=== PATIENT | male | born 1960 | race Caucasian/White ===

== ENCOUNTER 2020-03-02 06:29 | Day surgery (SDC) | payer OTHER ==
[~2020-03-02] VITALS: Ht 188 cm; Wt 135.5 kg
[~2020-03-02 06:29] MED LIST: HYDROXYZINE HCL50 MG PO; REMERON30 MG PO
[2020-03-02 07:10] VITALS: BP 135/70; Ht 188 cm; Wt 135.5 kg
[2020-03-02] MEDS ORDERED: OXYCODONE HCL5 M1 PO (07:15)
[2020-03-02] MEDS ORDERED: VISTARIL50 MG PO (07:16)
--- NOTE | 2020-03-02 10:26 | NUR ---
1025 VOIDS 300CC IN URINAL. SOFIYA AT DR. TEJEDA OFFICE TO ARRANGE WITH AMRITA RINCON FOR THIS PT.
--- NOTE | 2020-03-03 13:36 | OP ---
PATIENT NAME: JESUS DRAKE MEDICAL RECORD: [id number] :64 LOCATION:[facility] ADMISSION DATE: SURGEON: FESTUS MELGAR DO DATE OF OPERATION: 03/02/2020 PROCEDURE PERFORMED: Right Achilles tendon debridement and repair. PREOPERATIVE DIAGNOSIS: Right Achilles tendon partial tear and tendinosis midsubstance. POSTOPERATIVE DIAGNOSIS: Right Achilles tendon partial tear and tendinosis midsubstance. INDICATIONS: Mr. Drake is a 59-year-old male who has had this bump on the back of his right Achilles for over a year. He says he remembers hurting it, but does not remember how and had been becoming quite painful for him. He lost plantar flexion strength. I saw him in my office with an MRI report, showed tendinosis in the midsubstance which was likely due to a partial tear from the past, but it had gotten bigger and bigger and bothering him. There was not good tendon seen. I told him I could debride it and hopefully get that knot to go away, but he would be at risk for rerupture, continued pain, infection, bleeding, wound dehiscence, blood clots, and even . He signed the consent. SURGEON: Festus Melgar DO DESCRIPTION OF PROCEDURE: The patient received block per anesthesia in the preoperative area. He was taken to operative suite, in a supine position given general anesthetic and intubated. He was given 2 grams of Ancef. He was then put over in the prone position and the right lower extremity was prepped and draped in sterile fashion. A timeout was performed. Everyone was in agreeance with correct side, side, patient, and procedure. I then elevated the right lower extremity. A tourniquet was inflated to 350 mmHg and was up for 29 minutes. I then made an incision over the large bump he had on the back of his Achilles. Careful dissection made down to the tendon itself. The tendon on the posterior surface was not disrupted whatsoever, but I divided it and there was a large piece of tendon, probably 3 x 2 cm of tendinosis. It was a very poor tendon quality, I excised this. Once I excised, I used Regeneten, sutured it in from the anterior side to the posterior side with 4-0 Monocryl and then closed the tendon over with a running stitch of 4-0 Ethibond. Once I was ran through the tendon and secured very nicely, the Stravix graft was then placed over the tendon as an act of paratenon as this side is very bad for healing and this was sutured into the soft tissue with 4-0 Monocryl in simple fashion. The tourniquet was then let down and then Lizbet Pal, certified surgical appliance fitter, closed the wound with 3-0 Vicryl in inverted interrupted fashion and 2-0 nylon in horizontal mattress fashion. I then dressed with Adaptic, 4 x 4s, ABD, cast padding and a 4 x 30 splint was placed posteriorly and secured with Lowell wrap. He was then awakened and taken to recovery in stable condition. BLOOD LOSS: Minimal. COMPLICATIONS: None. TRANSINT:[id number] Voice Confirmation ID: [id number] DOCUMENT ID: [id number] OPERATIVE REPORT [id number] JESUS DRAKE,FESTUS Garcia DO at 1336 CC: [id number] DICTATION DATE: 03/02/20944 INTEGRATION SOLUTION ARCHITECT: 03/02/202111 [facility] 03/02/20 [facility] [address] [place] [address]
== END 2020-03-02 10:45 | disposition home or self-care (01) ==
LOC: D.OPS 06:29
PROVIDERS: ATTEND Orthopaedic Surgery
DX: S86.011A Strain of right Achilles tendon, initial encounter (principal); X58.XXXA Exposure to other specified factors, initial encounter

== ENCOUNTER 2020-05-12 11:17 | Emergency (ER) | payer OTHER ==
[~2020-05-12] VITALS: Ht 188 cm; Wt 134.1 kg
[~2020-05-12 11:17] MED LIST changes: +OXYCODONE HCL5 M1 PO; +VISTARIL50 MG PO
[2020-05-12 11:27] VITALS: Ht 188 cm; Wt 134.1 kg
[2020-05-12] MEDS ORDERED: DICLOFENAC SODI50 MG PO (12:42)
[2020-05-12 13:06] VITALS: BP 144/91
== END 2020-05-12 13:07 | disposition home or self-care (01) ==
LOC: D.ER 11:17
DX: M25.561 Pain in right knee (principal)

== ENCOUNTER → 2020-05-14 09:02 | Outpatient (CLI) | payer OTHER ==
[2020-05-12 11:27] VITALS: BMI 37.9
[~2020-05-14 09:02] MED LIST changes: +DICLOFENAC SODI50 MG PO
== END | disposition home or self-care (01) ==
LOC: D.MRI 09:02
PROVIDERS: ATTEND Orthopaedic Surgery
DX: S86.011D Strain of right Achilles tendon, subsequent encounter (principal)

== ENCOUNTER → 2020-06-18 13:05 | Outpatient (CLI) | payer OTHER ==
[2020-05-12 11:27] VITALS: BMI 37.9
== END | disposition home or self-care (01) ==
LOC: D.MRI 13:05
PROVIDERS: ATTEND Nurse Practitioner Family
DX: M25.561 Pain in right knee (principal)

== ENCOUNTER 2021-02-26 22:43 | Emergency (ER) | payer OTHER ==
[~2021-02-26] VITALS: Ht 188 cm; Wt 132.9 kg
[~2021-02-26 22:43] MED LIST changes: +ELIQUIS5 MG PO; +NICODERM CQ1 EAC3 TRANSDERM; +ZOCOR10 MG PO
[2021-02-26 23:14] VITALS: Ht 188 cm; Wt 132.9 kg
[2021-02-26 23:56] VITALS: BP 163/89
== END 2021-02-27 00:48 | disposition left against medical advice (07) ==
LOC: D.ER 22:43
DX: F41.9 Anxiety disorder, unspecified (principal); Z53.21 Procedure and treatment not carried out due to patient leaving prior to being seen by health care provider